=== PATIENT | male | born 1990 | race Caucasian/White ===

== ENCOUNTER 2018-08-18 12:03 | Emergency (ER) | payer OTHER ==
[~2018-08-18] VITALS: Wt 81.6 kg
[2018-08-18] MEDS ORDERED: AMOXICILLIN500 M2 PO (12:33)
[2018-08-18] MEDS ORDERED: IBUPROFEN600 MG PO (12:33)
== END 2018-08-18 12:55 | disposition home or self-care (01) ==
LOC: ED 12:03
DX: K02.9 Dental caries, unspecified (principal); Z88.1 Allergy status to other antibiotic agents

== ENCOUNTER 2021-04-28 12:37 | Emergency (ER) | payer OTHER ==
[~2021-04-28] VITALS: Ht 162.5 cm; Wt 86.2 kg
[~2021-04-28 12:37] MED LIST: AMOXICILLIN500 M2 PO; IBUPROFEN600 MG PO
[2021-04-28] MEDS ORDERED: AMOXICILLI400 MG/51 PO (13:52)
== END 2021-04-28 13:56 | disposition home or self-care (01) ==
LOC: ED 12:37
DX: K08.89 Other specified disorders of teeth and supporting structures (principal); Z88.1 Allergy status to other antibiotic agents

== ENCOUNTER 2023-08-10 01:52 | Emergency (ER) | payer OTHER ==
[~2023-08-10] VITALS: Ht 170.1 cm; Wt 91.2 kg
[~2023-08-10 01:52] MED LIST changes: +AMOXICILLI400 MG/51 PO
[2023-08-10 02:23] LABS: BASO # 0.1 10*3/uL (0.0-0.1); BASO % 0.4 % (0.0-1.0); EOS % 0.2 % (1.0-4.0); LYMPH % 11.3 % (27.0-41.0); MEAN CELL VOLUME 89.4 fl (80.0-94.0); MEAN CORPUSCULAR HGB 29.4 pg (27.0-31.0); MEAN CORPUSCULAR HGB CONC 32.9 g/dl (33.0-37.0); MEAN PLATELET VOLUME 10.1 fl (9.6-12.3); MONO # 0.6 10*3/uL (0.1-1.0); MONO % 3.1 % (3.0-9.0); NEUT # 15.2 10*3/uL (2.3-7.9); NEUT % 84.6 % (47.0-73.0); PLATELET COUNT AUTOMATED 360 10*3/uL (130-400); RED BLOOD COUNT 5.48 10*6/uL (4.50-5.90); RED CELL DISTRI WIDTH 13.3 % (0-14.5); WHITE BLOOD COUNT 17.9 10*3/uL (4.8-10.8)
[2023-08-10 02:37] LABS: ACT PARTIAL THROMBO TIME 23.7 SECONDS (20.0-32.1)
[2023-08-10 02:47] LABS: ALKALINE PHOSPHATASE 99 U/L (46-116); BUN 8 mg/dl (9-23); CHLORIDE 102 mmol/L (98-107); ETHYL ALCOHOL < 3.0 mg/dl (<3); LIPASE 34 U/L (12-53); POTASSIUM 3.8 mmol/L (3.4-5.1); SGPT/ALT 32 U/L (5-49); TOTAL PROTEIN 7.8 gm/dL (6.0-8.0)
[2023-08-10 03:41] LABS: BILIRUBIN Negative (Negative); BLOOD Negative (Negative); CLARITY Clear (Clear); COLOR Yellow (Yellow); GLUCOSE Trace (Negative); KETONE 2+ (Negative); LEUKO ESTERASE Negative (Negative); NITRITE Negative (Negative); SPECIFIC GRAVITY >= 1.030 (1.001-1.030)
[2023-08-10 03:48] LABS: URINE AMPHETAMINES Negative (1000ng/ml); URINE BARBITURATES Negative (200ng/ml); URINE BENZODIAZEPINES Negative (200ng/ml); URINE CANNABINOIDS (THC) Negative (50ng/ml); URINE COCAINE Negative (300ng/ml); URINE METHADONE Negative (300ng/ml); URINE OPIATES Negative (300ng/ml); URINE PHENCYCLIDINE Negative (25ng/ml)
[2023-08-10 04:02] LABS: WBC 0-2 wbc/hpf (0-5)
[2023-08-10] MEDS ORDERED: PEPCID AC10 M2 PO (05:19)
== END 2023-08-10 05:22 | disposition home or self-care (01) ==
LOC: ED 01:52
PROVIDERS: Internal Medicine
DX: K29.70 Gastritis, unspecified, without bleeding (principal); R11.2 Nausea with vomiting, unspecified; F17.200 Nicotine dependence, unspecified, uncomplicated; Z88.1 Allergy status to other antibiotic agents